=== PATIENT | female | born 1950 | race Two or more races ===

== ENCOUNTER 2025-01-10 15:24 | Emergency (ER) | payer BC, OTHER ==
[~2025-01-10] VITALS: Ht 172.7 cm; Wt 75.0 kg
[2025-01-10 15:25] VITALS: PULSE 137; RESP 12; TEMP 98.4; O2SAT 97
--- NOTE | 2025-01-10 15:39 | ECG ---
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
[2025-01-10] MEDS: SODIUM CHLORIDE 0.9% 1,000 ML IV ONE (16:04)
--- NOTE | 2025-01-10 16:20 | ECG ---
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
--- NOTE | 2025-01-10 16:21 | ED.PDOC ---
HPI Comments 74 year old female presents to the ED via EMS with a chief complaint of chest pain onset today. Per EMS, patient went to [place] for med refill, patient HR was elevated 130s, monitor showed patient was a-fib RVR, 911 was called. Patient states she has been experiencing intermittent palpitations for the past 2 months. Currently, she is experiencing chest pressure, upon ED arrival HR was 132. Denies fever, chills, shortness a breath, dizziness, numbness/tingling, weakness, blurred vision, headache. nausea, vomiting, diarrhea. No other symptoms or modifying factors present at this time. Chief Complaint: Chest Pain Time Seen by MD: 16:05 Reviewed Notes: Medications, Allergies Allergies: Coded Allergies: SHERRON Inhibitors (Verified Allergy, Severe, 01/10/25) Information Source: Patient, Emergency Med Personnel Mode of Arrival: EMS Severity: Moderate Timing: Hours Duration: Since onset Prehospital treatment: None Location: Chest (L) Radiation: No Radiation Quality: Pressure Onset: At Rest Cardiac Risk Factors: None PE Risk Factors: None History of: None Modifying Factors: Nothing Past Medical History PAST MEDICAL HISTORY: Denies Surgical History: Denies all surgeries COMMERCIAL ADMINISTRATOR History: No Pertinent COMMERCIAL ADMINISTRATOR History Family History Family History: Reviewed,noncontributory to illness, No family hx of Cancer, No family hx of DM, No family hx of Heart myron, No family hx of HTN, No family hx ofKidney myron, No family hx of Liver myron, No family hx of Lung myron, No family hx of Stroke Social History Smoker: Non-Smoker Alcohol: Denies ETOH Use Drugs: Denies Drug Use Lives In: Home Constitutional: denies: chills, diaphoresis, fatigue, fever, malaise, sweats, weakness, others EENTM: denies: blurred vision, double vision, ear bleeding, ear discharge, ear drainage, ear pain, ear ringing, eye pain, eye redness, hearing loss, mouth pain, mouth swelling, nasal discharge, nose bleeding, nose congestion, nose pain, photophobia, tearing, throat pain, throat swelling, voice changes, others Respiratory: denies: cough, hemoptysis, orthopnea, SOB at rest, shortness of breath, SOB with excertion, stridor, wheezing, others Cardiovascular: reports: chest pain; denies: dizzy spells, diaphoresis, Dyspnea on exertion, edema, irregular heart beat, left arm pain, lightheadedness, palpitations, PND, syncope, others Gastrointestinal: denies: abdomen distended, abdominal pain, blood streaked bowels, constipated, diarrhea, dysphagia, difficulty swallowing, hematemesis, melena, nausea, poor appetite, poor fluid intake, rectal bleeding, rectal pain, vomiting, others Genitourinary: denies: abnormal vagina bleeding, burning, dyspareunia, dysuria, flank pain, frequency, hematuria, incontinence, pain, , vagina discharge, urgency, others Neurological: denies: dizziness, fainting, headache, left sided numbness, left sided weakness, numbness, paresthesia, pre-existing deficit, right sided numbness, right sided weakness, seizure, speech problems, tingling, tremors, weakness, others Musculoskeletal: denies: back pain, gout, joint pain, joint swelling, muscle pain, muscle stiffness, neck pain, others Integumetry: denies: bruises, change in color, change in hair/nails, dryness, laceration, lesions, lumps, rash, wounds, others Allergic/Immunocompromised: denies: Difficulty Healing, Frequent Infections, Hives, Itching, others Hematologic/Lymphatic: denies: anemia, blood clots, easy bleeding, easy bruising, swollen glands, others Endocrine: denies: excessive hunger, excessive sweating, excessive thirst, excessive urination, flushing, intolerance to cold, intolerance to heat, unexplained weight gain, unexplained weight loss, others Psychiatric: denies: anxiety, bipolar disorder, depression, hopeless, panic disorder, schizophrenia, sleepless, suicidal, others All Other Systems: Reviewed and Negative Physical Exam General Appearance: No Apparent Distress, Normal HEENT: Normal ENT Inspection, Pharynx Normal, TMs Normal Neck: Full Range of Motion, Non-Tender, Normal, Normal Inspection Respiratory: Chest Non-Tender, Lungs Clear, No Accessory Muscle Use, No Respiratory Distress, Normal Breath Sounds Cardiovascular: No Edema, No JVD, No Murmur, No Gallop, Tachycardia Breast Exam: Deferred Gastrointestinal: No Organomegaly, Non Tender, No Pulsatile Mass, Normal Bowel Sounds, Soft Genitalia: Deferred Pelvic: Deferred Rectal: Deferred Extremities: No calf tenderness, Normal capillary refill, Normal inspection, Normal range of motion, Non-tender, No pedal edema Musculoskeletal : Apperance: Normal Neurologic: Alert, stamper blocker II-XII nml as Tested, No Motor Deficits, Normal Affect, Normal Mood, No Sensory Deficits Cerebellar Function: Normal Reflexes: Normal Skin: Dry, Normal Color, Warm Lymphatic: No Adenopathy Was a procedure done? Was a procedure done?: No CP Differential Dx Differential Diagnosis: A-fib, A-Flutter, Angina, Anxiety / Panic Attack, Atrial Dysrhythmia X-Ray, Labs, Meds, VS Vital Signs Date Time Temp Pulse Resp B/P (MAP) Pulse Ox O2 Delivery O2 Flow Rate FiO2 01/10/25 16:31 124 01/10/25 16:17 124 01/10/25 15:25 131 01/10/25 15:25 137 12 97 Room Air* 0 21 01/10/25 15:25 98.4 138 12 133/67 (89) 98 98.4 01/10/25 15:24 98.4 132 16 184/114 99 98.4 Lab Test 01/10/25 16:58 01/10/25 16:22 01/10/25 16:14 Range/Units Troponin I High Sensitivity Pending 15 </=34 ng/L Urine Color Colorless Yellow Urine Clarity Clear Clear Urine pH 7.0 5.0-9.0 Urine Specific [place] 1.005 1.001-1.035 Urine Protein Negative Negative Urine Ketones Negative Negative Urine Blood Negative Negative /uL Urine Nitrite Negative Negative Urine Bilirubin Negative Negative Urine Urobilinogen Normal Negative mg/dL Urine Leukocyte Esterase Negative Negative /uL Urine RBC 1 0 - 4 /hpf Urine Microscopic WBC < 1 0-5 /HPF Urine Squamous Epithelial Cells None seen <5 /hpf Urine Bacteria None seen None Seen /hpf Urine Glucose Normal Normal mg/dL White Blood Count 9.1 4.4-10.8 10^3/uL Red Blood Count 4.76 4.0-5.20 10^6/uL Hemoglobin 14.2 12.2-16.2 g/dL Hematocrit 41.0 36.0-46.0 % Mean Corpuscular Volume 86.1 80.0-100.0 fL Mean Corpuscular Hemoglobin 29.9 28.0-32.0 pg Mean Corpuscular Hemoglobin Concent 34.8 32.0-36.0 g/dL Red Cell Distribution Width 13.8 11.8-14.3 % Platelet Count 238 140-450 10^3/uL Mean Platelet Volume 7.9 6.9-10.8 fL Neutrophils (%) (Auto) 54.1 37.0-80.0 % Lymphocytes (%) (Auto) 33.7 10.0-50.0 % Monocytes (%) (Auto) 9.0 0.0-12.0 % Eosinophils (%) (Auto) 2.8 0.0-7.0 % Basophils (%) (Auto) 0.4 0.0-2.0 % Neutrophils # (Auto) 4.9 1.6-8.6 10 ^3/uL Lymphocytes # (Auto) 3.1 0.4-5.4 10 ^3/uL Monocytes # (Auto) 0.8 0-1.3 10 ^3/uL Eosinophils # (Auto) 0.3 0-0.8 10 ^3/uL Basophils # (Auto) 0 0-0.2 10 ^3/uL Nucleated Red Blood Cells 0.0 % Sodium Level 145 136-145 mmol/L Potassium Level 4.0 3.5-5.1 mmol/L Chloride Level 105 98-107 mmol/L Carbon Dioxide Level 29 20-31 mmol/L Anion Gap 11 5-15 Blood Urea Nitrogen 9 9-23 mg/dL Creatinine 0.95 0.550-1.02 mg/dL Glomerular Filtration Rate Calc 62 >90 mL/min BUN/Creatinine Ratio 9.5 L 10.0-20.0 Serum Glucose 112 H 74-106 mg/dL Calcium Level 9.5 8.7-10.4 mg/dL Current Medications Medications (Trade) Dose Ordered Sig/Bryson Route Start Time Stop Time Status Last Admin Sodium Chloride 1,000 ml @ 1,000 mls/hr Q1H ONCE IV 01/10/25 16:00 01/10/25 16:59 DC 01/10/25 16:[address] [address] Ph: [phone] DIAGNOSTIC IMAGING Diagnostic Imaging Report : [id number] Signed PATIENT: ELSI MERINO ACCT: [id number] UNIT: [id number] : 1950 LOC: ER ROOM / BED: / AGE / SEX: 74 / F ADM STATUS: REG ER SERVICE 1552 ORDERING PHYSICIAN: VANDANA HART PROCEDURE(s): CXR1 - CHEST XRAY 1 VIEW REASON: cp ORDER NUMBER(s): [id number], ACCESSION NUMBER(s): [id number] CHEST RADIOGRAPH Indication: cp Technique: Single frontal view of the chest was obtained Comparison: None FINDINGS: Lines and Tubes: None Lungs: No focal consolidation. Mild diffuse interstitial prominence. Pleura: No effusion. No pneumothorax. Cardiomediastinal contours: Borderline cardiomegaly. Bones: No acute osseous abnormality. Partially imaged sclerosis over the right h umeral head which represent bone infarct/ enchondroma with low-grade chondrosarcoma not excluded. IMPRESSION: Mild pulmonary vascular congestion. ATED BY: AMITA HERNANDEZ DO DICTATED DATE/TIME: 01/10/251701 SIGNED BY: AMITA HERNANDEZ DO SIGNED DATE/TIME: 01/10/251701 CC: X-Ray, Labs, Meds, VS Comment Patient converted on her own, heart rate in the 60s, patient feels significant improvement from how she was earlier. He advised she will need to follow up with PCP/Antonio for cardiology referral. Time of 1ST Reevaluation: 16:35 Reevaluation 1ST: Unchanged Time of 2ND Reevaluation: 17:29 Reevaluation 2ND: Improved Patient Education/Counseling: Diagnosis, Treatment, Prognosis, Need For Follow Up (Follow up with PCP next available appointment) Family Education/Counseling: No Family Present SEPSIS Sepsis Screen Date sepsis recognized/suspect: Jan 10, 2025 Time Sepsis recognized/suspect: 1534 Recent Procedure: No On Antibiotic Therapy: No Respiratory Rate >20: No Heart Rate >90: Yes Temp<36 C (96.8 F) or >38.3 C: No SBP <90 or MAP <65 mmHG: No New Acute Mental Status Change: No Is the patient on CPAP, BIPAP,: No Physician Orders Troponin-I Hs (01/10/25 16:37) Troponin-I Hs (01/10/25 18:37) Electrocardigram (01/10/25 18:37) Chest Xray 1 View (01/10/25 15:52) Vital Signs Date Time Temp Pulse Resp B/P (MAP) Pulse Ox O2 Delivery O2 Flow Rate FiO2 01/10/25 16:31 124 01/10/25 16:17 124 01/10/25 15:25 131 01/10/25 15:25 137 12 97 Room Air* 0 21 01/10/25 15:25 98.4 138 12 133/67 (89) 98 98.4 01/10/25 15:24 98.4 132 16 184/114 99 98.4 Laboratory Tests Test 01/10/25 16:14 White Blood Count 9.1 10^3/uL (4.4-10.8) Medications Medications Dose Ordered Sig/Bryson Route Start Time Stop Time Status Last Admin Dose Admin Sodium Chloride 1,000 ml @ 1,000 mls/hr Q1H ONCE IV 01/10/25 16:00 01/10/25 16:59 DC 01/10/25 16:04 Departure 1 Departure Time of Disposition: 17:30 Impression: Primary Impression: New onset a-fib Disposition: 01 HOME / SELF CARE / HOMELESS Condition: Stable Discharged With: Self Critical Care Note Critical Care Time?: No Stability Stability form required: No Heart Score Heart Score: Heart Score Response (Comments) Value History N/A 0 EKG N/A 0 Age N/A 0 Risk Factors N/A 0 Troponin N/A 0 Total 0 I personally scribed for VANDANA HART ([email or web address]) on 01/10/25 at 16:21. Electronically submitted by Vera Pabon ([email or web address]). I personally scribed for VANDANA HARTP ([email or web address]) on 01/10/25 at 17:15. Electronically submitted by Vera Pabon ([email or web address]). VANDAAN HART Jan 10, 2025 16:21
[2025-01-10 16:28] LABS: Hematocrit 41.0 % (36.0-46.0); Hemoglobin 14.2 g/dL (12.2-16.2); Mean Corpuscular Hemoglobin 29.9 pg (28.0-32.0); Mean Corpuscular Volume 86.1 fL (80.0-100.0); Nucleated Red Blood Cells % 0.0 %
[2025-01-10 16:36] LABS: Chloride 105 mmol/L (98-107); Potassium 4.0 mmol/L (3.5-5.1); Sodium 145 mmol/L (136-145)
[2025-01-10 16:37] LABS: Anion Gap 11 (5-15); Calcium 9.5 mg/dL (8.7-10.4); Carbon Dioxide 29 mmol/L (20-31)
[2025-01-10 16:42] LABS: BUN/Creatinine Ratio 9.5 (10.0-20.0)
[2025-01-10 16:43] LABS: Blood Urea Nitrogen 9 mg/dL (9-23); Glucose 112 mg/dL (74-106)
[2025-01-10 16:49] LABS: Urine Protein, UAD Negative (Negative)
--- NOTE | 2025-01-10 17:04 | DVH ---
CHEST RADIOGRAPH Indication: cp Technique: Single frontal view of the chest was obtained Comparison: None FINDINGS: Lines and Tubes: None Lungs: No focal consolidation. Mild diffuse interstitial prominence. Pleura: No effusion. No pneumothorax. Cardiomediastinal contours: Borderline cardiomegaly. Bones: No acute osseous abnormality. Partially imaged sclerosis over the right humeral head which represent bone infarct/ enchondroma with low-grade chondrosarcoma not excluded. IMPRESSION: Mild pulmonary vascular congestion.
[2025-01-10 17:30] VITALS: BP 109/70; RESP 17; O2SAT 97
[2025-01-10 18:23] VITALS: PULSE 55
--- NOTE | 2025-01-10 18:25 | ECG ---
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
== END 2025-01-10 18:35 | disposition home or self-care (01) ==
LOC: EDBD 15:24 → ER 15:24
DX: I48.91 Unspecified atrial fibrillation (principal); R07.89 Other chest pain; R00.2 Palpitations
CPT/HCPCS: 36415; 71045; 80048; 81001; 84484; 85025; 93005; 96360; 99285; J7030